=== PATIENT | male | born 1950 | race Caucasian/White ===

== ENCOUNTER 2019-08-28 06:53 | Day surgery (SDC) | payer OTHER ==
[~2019-08-28] VITALS: Ht 188 cm; Wt 109.9 kg
[~2019-08-28 06:53] MED LIST: ASPI81CH PO; C Complex1000 MG PO; DONE10 PO; Isosorbide Mono30 MG PO; METO25ER PO; NITR.4SL SL; Pepcid40 MG PO; Zoloft50 MG PO
--- NOTE | 2019-08-28 07:43 | NUR ---
Lungs clear T/O to Auscultation.
--- NOTE | 2019-08-28 07:43 | NUR ---
History, Chart, Medications and Allergies reviewed before start of procedure. Patient confirms NPO status and agrees with scheduled surgery. Patient States Post-Procedure ride home has been arranged with his . at bedside.
--- NOTE | 2019-08-28 12:03 | NUR ---
PT AWAKE, ALERT, CONVERSING WITH STAFF. NO C/O PAIN OR DISCOMFORT. SIPPING ON COFFEE AT THIS TIME.
--- NOTE | 2019-08-28 12:24 | NUR ---
PT ATTEMPTING TO EAT PUDDING AT THIS TIME.
--- NOTE | 2019-08-28 12:34 | NUR ---
REVIEWED DISCHARGE INSTRUCTIONS WITH PATIENT AND , BOTH OF WHOM VERBALIZE UNDERSTANDING OF ALL INSTRUCTIONS GIVEN. PT HAS NO C/O AT THIS TIME. CONTINUES WITH PO INTAKE.
--- NOTE | 2019-08-28 13:10 | NUR ---
PT DRESSED WITH ASSISTANCE OF . STEADY ON FEET. IV DC TIP INTACT. PT DC HOME WITH TO DRIVE HIM. INCISION SITES REMAINED CLEAR - NO DRAINAGE OR SWELLING.
--- NOTE | 2019-08-31 10:23 | NUR ---
08/31/19 1023 Karena De Jesus VERIFICATIONS: EDIT CHART.
== END 2019-08-28 23:47 | disposition home or self-care (01) ==
LOC: ORSCMMR 06:53 → ORD 08:30 → ORSCMMR 08:30
PROVIDERS: Surgery
PROC: 8E0W4CZ Robotic Assisted Procedure of Trunk Region, Percutaneous Endoscopic Approach (ICD-10-PCS; principal; 2019-08-28 08:30)
PROC: 0YUA4JZ Supplement Bilateral Inguinal Region with Synthetic Substitute, Percutaneous Endoscopic Approach (ICD-10-PCS; principal; 2019-08-28 08:30)
PROC: 0WUF0JZ Supplement Abdominal Wall with Synthetic Substitute, Open Approach (ICD-10-PCS; principal; 2019-08-28 08:30)
DX: K40.30 Unilateral inguinal hernia, with obstruction, without gangrene, not specified as recurrent (principal); K40.90 Unilateral inguinal hernia, without obstruction or gangrene, not specified as recurrent; K43.9 Ventral hernia without obstruction or gangrene; I10 Essential (primary) hypertension; E78.5 Hyperlipidemia, unspecified; G47.33 Obstructive sleep apnea (adult) (pediatric); F32.9 Major depressive disorder, single episode, unspecified; F43.10 Post-traumatic stress disorder, unspecified; Z87.891 Personal history of nicotine dependence; Z79.82 Long term (current) use of aspirin; Z79.899 Other long term (current) drug therapy
CPT/HCPCS: 49650; 49560; 49568; S2900; A9270-GY; C1781; J0690; J1100; J1885; J2250; J2370; J2405; J2704; J2710; J3010; J7120

== ENCOUNTER 2020-10-27 21:56 | Inpatient (IN) | payer OTHER, MEDICARE ==
[~2020-10-27] VITALS: Ht 188 cm; Wt 111.1 kg
[~2020-10-27 21:56] MED LIST changes: +DIVA125EC PO
[2020-10-27 22:32] LABS: BASOPHILS ABSOLUTE AUTO 0.02 K/mm3 (0.00-0.23); BASOPHILS PERCENT AUTO 0 % (0-2); EOSINOPHILS PERCENT AUTO 0 % (0-6); Hematocrit 44.8 % (37.0-53.0); Hemoglobin 15.5 g/dL (13.5-17.5); IMMATURE GRAN ABSOLUTE AUTO 0.08 K/mm3 (0.00-0.10); IMMATURE GRAN PERCENT AUTO 1 % (0-1); LYMPHOCYTES ABSOLUTE AUTO 0.52 K/mm3 (0.84-5.20); LYMPHOCYTES PERCENT AUTO 3 % (21-46); MONOCYTES ABSOLUTE AUTO 1.03 K/mm3 (0.16-1.47); MONOCYTES PERCENT AUTO 6 % (4-13); Mean Corpuscular HGB 32.4 pg (26.0-34.0); Mean Corpuscular HGB Conc 34.6 g/dL (31.5-36.5); Mean Corpuscular Volume 94 fL (80-100); Mean Platelet Volume 10.9 fL (9.1-12.4); NEUTROPHILS PERCENT AUTO 90 % (41-73); Platelet Count 169 K/mm3 (150-400); RDW Coefficient Variation 11.9 % (11.7-14.2); RDW Standard Deviation 41.4 fL (35.1-46.3); Red Blood Cell Count 4.79 M/mm3 (4.30-5.90); White Blood Cell Count 16.75 K/mm3 (4.00-11.30)
[2020-10-27 22:50] LABS: Alanine Aminotransfer (ALT/SGP 30 U/L (12-78); Albumin, Blood 3.3 g/dL (3.4-5.0); Albumin/Globulin Ratio 0.8 (0.8-1.8); Alk Phos 100 U/L (50-136); Anion Gap 8 mmol/L (6-16); Aspartate Aminotrans (AST/SGOT 18 U/L (12-37); Bilirubin, Total 2.2 mg/dL (0.1-1.0); Blood Urea Nitrogen 16 mg/dL (8-24); CO2, Blood 22 mmol/L (21-32); Calcium, Blood 8.9 mg/dL (8.5-10.1); Chloride, Blood 110 mmol/L (98-108); Globulin, Blood 4.3 g/dL (2.2-4.0); Glomerular Filtration Rate >60 (60-); Glucose, Blood 179 mg/dL (70-99); Potassium, Blood 3.7 mmol/L (3.5-5.5); Sodium, Blood 140 mmol/L (136-145); Total Protein, Blood 7.6 g/dL (6.4-8.2)
[2020-10-28 00:28] LABS: Source, Urine Clean Catch
[2020-10-28 00:32] LABS: Bilirubin, Urine 1+ (Neg); Blood, Urine 3+ (Neg); Glucose Qualitative, Urine 2+ (Neg); Ketones, Urine 1+ (Neg); Leukocyte Esterase, Urine 1+ (Neg); Nitrite, Urine Pos (Neg); Protein, Urine 2+ (Neg); Urobilinogen, Urine 2+ (Normal)
[2020-10-28 00:33] LABS: Appearance, Urine Hazy (Clear); Color, Urine Amber (P-Yellow)
[2020-10-28 00:41] LABS: Amorphous Light (0-Heavy); Bacteria Mod /hpf; Mucus Mod (0-Heavy); Squamous Epithelial Cells Not Seen /hpf (Few)
[2020-10-28 10:21] LABS: Influenza A, PCR NEGATIVE (NEGATIVE); Influenza B, PCR NEGATIVE (NEGATIVE); Resp Syncytial Virus, PCR NEGATIVE (NEGATIVE); SARS-Cov-2 (COVID-19) PCR, MMC NEGATIVE (NEGATIVE)
--- NOTE | 2020-10-28 14:46 | NUR ---
PT TO [place] FROM MEDICAL FLOOR. NURSE STS NPO. IV IN PLACE, FLUSHED s DIFFICULTY. PT ALERT, ORIENTED TO SELF ONLY. CONTACTED, GIVEN DR. CEBALLOS VERBAL CONSENT FOR SEDATION.
--- NOTE | 2020-10-28 15:45 | NUR ---
10/28/20 1545 CAROBC GUARDADO PT RECEIVED SCHEDULED DOSE OF ZOSYN PRIOR TO PROCEDURE ON MED SURG
--- NOTE | 2020-10-28 18:43 | NUR ---
PT RESTING IN BED AFTER DINNER (CLEAR LIQUID) AND PM MEDICATION ADMIN. PT MAKES NO COMPLAINTS OF PAIN IN OR AROUND ABDOMEN. PT IS ON ROOM AIR, IV RUNNING AND WNL, ALERT AND ORIENTED X3 WITH SITUATIONAL CONFUSION. BED IS IN LOW POSITION, CALL LIGHT WITHIN REACH, AT BEDSIDE FOR ORIENTATION SUPPORT, STAFF WILL CONT. TO MONITOR.
--- NOTE | 2020-10-29 05:55 | NUR ---
SUMMARY PT BECAME INCREASEINGLY CONFUSED AND AGITATED. PT HAD PULLED OUT IV MULTIPLE TIMES. PT HAD GOT OUT OF BED W/ OUT CALLING. DR STEVENS CALLED AND ORDERED MAGGIE VEST AND WRIST RESTRAINTS. PT WAS ABLE TO GET OUT OF WRIST RESTRAINTS MULTIPLE TIMES. PT IV'S REPLACED. PT WAS OFFERED ASSISTANCE TO GO TO BATHROOM TO VOID AFTER HE MANAGED TO GET OUT OF RESTRAINTS THE SECOND TIME. PT REFUSED TO GET BACK INTO BED AND BECAME AGGRESIVE, SECURITY CALLED TO STANDBY AND ASSIST. DR STEVENS CALLED AND HE ORDERED IM HALDOL. HALDOL GIVEN AND PT EVENTUALLY AGREED TO HAVE RESTRAINTS PLACED. TOUGH CUFFS WERE USED INSTEAD OF VELCRO SOFT RESTRAINTS DUE TO PT ABLE TO GET OUT. PT HAS BEEN IN RESTRIANTS W/ OUT ISSUE SINCE. PT IS VERY CONFUSED AND HAS NO SHORT TERM MEMORY CURRENTLY. PT BECOMES AGITATED EASILY. WCTM AND PASS ON TO DAY RN. CALL LIGHT IN REACH AND BED ALARM ON.
--- NOTE | 2020-10-29 19:09 | NUR ---
PT RESTING IN BED WITH AT BEDSIDE AND REQUIRING NO RESTAINST. PT MADE NO COMPAINTS OF PAIN THIS SHIFT. PRN ATIVAN WAS USED PER EMAR. PT ALERT AND ORIENTED X3 (NOT TO DATE/TIME) AND HAS VERY LITTLE SHORT TERM MEMORY. BED IN LOW POSITION, CALL LIGHT WITHIN REACH, STAFF WILL CONT TO MONITOR FOR CHANGES.
--- NOTE | 2020-10-30 00:22 | NUR ---
0000 PT PULLED OUT IV.
--- NOTE | 2020-10-30 00:43 | NUR ---
UNABLE TO COMPLETE NOC OXIMETRY STUDY D/T PT STATUS. PT CONFUSED, AGITATED AND PULLING OFF OXIMETRY SENSORS. SPOUSE AT BEDSIDE AND EXPLAINED REASON FOR D/C. PT ON RA AND NO RESP DISTRESS NOTED.
[2020-10-30] MEDS ORDERED: QUET25 PO (10:51)
--- NOTE | 2020-10-30 11:47 | NUR ---
PT WAS DISCHARGED WITH AND BELONGINGS AT SIDE. PT WAS ALERT AND ORIENTED X3 (NOT DATE AND TIME) AND SHOWING INCREASE AGIATATION. PT WAS MEDICATED PER EMAR AND COOPERATIVE WITH DC PLAN. PT AND WAS EDUCATED ON FOLLOW UP APOINTMENTS NEEDED AND MEDICATIONS NEEDED. STATES [facility] FOLLOW [facility].
== END 2020-10-30 11:32 | disposition home or self-care (01) | DRG 853 ==
LOC: ER 21:56 → MEDS 10-28 02:16
PROVIDERS: Emergency Medicine; Surgery; ADMIT Internal Medicine
PROC: 0FT44ZZ Resection of Gallbladder, Percutaneous Endoscopic Approach (ICD-10-PCS; principal; 2020-10-28 13:45)
DX: A41.9 Sepsis, unspecified organism (principal); G92 Toxic encephalopathy; N39.0 Urinary tract infection, site not specified; K81.0 Acute cholecystitis; Z79.82 Long term (current) use of aspirin; F43.10 Post-traumatic stress disorder, unspecified; Z87.891 Personal history of nicotine dependence; Z95.1 Presence of aortocoronary bypass graft; F32.9 Major depressive disorder, single episode, unspecified; K21.9 Gastro-esophageal reflux disease without esophagitis; Z20.822 Contact with and (suspected) exposure to COVID-19; Z78.1 Physical restraint status; K82.A1 Gangrene of gallbladder in cholecystitis; G47.33 Obstructive sleep apnea (adult) (pediatric); F03.90 Unspecified dementia, unspecified severity, without behavioral disturbance, psychotic disturbance, mood disturbance, and anxiety
CPT/HCPCS: 0241U; 36415; 76705; 80053; 81001; 83690; 85025; 87040; 87086; 88304; 93005; 93010; 94762; 96365; 96375; 96376; 99285-25; A9270; J1100; J1630; J1650; J2250; J2405; J2543; J2704; J3010; J7120